=== PATIENT | female | born 1995 | race Caucasian/White ===

== ENCOUNTER 2020-06-13 10:29 | Emergency (ER) | payer SELFPAY ==
[2020-06-13] MEDS ORDERED: HYDROmorphone 1 MG/ML Syringe IVPUSH ONE ×4 (10:43→15:01)
[2020-06-13] MEDS: Sodium Chloride 0.9% 10 ML Syringe FLUSH PRN ×3 (11:07→15:08)
[2020-06-13] MEDS ORDERED: HYDROmorphone 1 MG/ML Syringe ONE (12:19)
[2020-06-13 13:19] LABS: CHLORIDE,CL 104 mmol/L (98-107); SODIUM,NA 139 mmol/L (136-145)
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
[2020-06-13] MEDS ORDERED: Ondansetron 4 MG/2 ML SDV IVPUSH ONE (15:01)
[2020-06-13] MEDS ORDERED: Ondansetron 4 MG/2 ML SDV ONE (15:03)
== END 2020-06-13 15:20 ==
LOC: LL.ED 10:29
DX: S82.851A Displaced trimalleolar fracture of right lower leg, initial encounter for closed fracture (principal); E66.9 Obesity, unspecified; Z77.22 Contact with and (suspected) exposure to environmental tobacco smoke (acute) (chronic); Z88.2 Allergy status to sulfonamides; W10.2XXA Fall (on)(from) incline, initial encounter
CPT/HCPCS: 29515; 36415; 73600; 80048; 85025; 96374; 96375; 96376; 99285; J1170; J2405; 99284